=== PATIENT | female | born 1940 | race Caucasian/White ===

== ENCOUNTER → 2023-05-17 11:49 | Outpatient (CLI) | payer MEDICARE, OTHER, SELFPAY ==
--- NOTE | 2023-05-17 11:54 | DI.ECHO.S_ITS ---
[facility]---------+ [facility] +---------+ : : [address] : [address] : : : : [id number] : : : : Phone: [phone]---------+ Echocardiogram Report + + :Name: SANDRA HOBSON Study Date: 05/17/2023 Height: 60 in : :[facility] ReadingLocation: Weight: 143 lb : : Gender: Female BSA: 1.6 m2 : :: 1940 Age: 82 yrs BP: 128/67 mmHg: :Reason For Study: TAKOTSUBO SYNDROME : :Ordering Physician: TAWANNA, : :KRZYSZTOF Performed By: Elva Rock : :Referring: KRZYSZTOF HOLLAND : + + Interpretation Summary The left ventricle is normal in size and wall thickness. Left ventricular systolic function is low normal. The ejection fraction is estimated to be 50- 55%. There is apical hypokinesis. Apical wall motion abnormality is new since prior study. The right ventricle is normal in size and function. The right ventricular systolic pressure is estimated to be at least 42 mmHg based on an estimated right atrial pressure of 8 mm Hg. The left atrium is moderately dilated. The right atrium is moderately dilated. There is moderate mitral regurgitation. Compared to the prior echo study, there has been an increase in the severity of mitral regurgitation. There is mild aortic regurgitation. There is mild to moderate tricuspid regurgitation. Compared to the prior echo exam, there has been an increase in TR severity. The aortic root is normal size. Procedure: A two-dimensional transthoracic echocardiogram with color flow and Doppler was performed. The study quality was technically adequate. Comparison is made with the echocardiogram of 10/01/2014. The patient was in sinus rhythm with heart rates between 52-74 bpm during the exam. The patient had occasional PVCs during the exam. Left Ventricle: The left ventricle is normal in size and wall thickness. Left ventricular systolic function is low normal. The ejection fraction is estimated to be 50-55%. There is apical hypokinesis. Apical wall motion abnormality is new since prior study. Right Ventricle: The right ventricle is normal in size and function. Atria: The left atrium is moderately dilated. The right atrium is moderately dilated. There is no Doppler evidence for an interatrial shunt. Mitral Valve: There is mild mitral annular calcification. The mitral valve chordae are thickened and/or calcified. The mitral valve leaflets are mildly calcified. There is moderate mitral regurgitation. Compared to the prior echo study, there has been an increase in the severity of mitral regurgitation. There are multiple regurgitant jets present. Aortic Valve: The aortic valve is trileaflet. The aortic valve opens well. There is no aortic valve stenosis. There is mild aortic regurgitation. Tricuspid Valve: The tricuspid valve is not well visualized, but is grossly normal. There is mild to moderate tricuspid regurgitation. Compared to the prior echo exam, there has been an increase in TR severity. The right ventricular systolic pressure is estimated to be at least 42 mmHg based on an estimated right atrial pressure of 8 mm Hg. Pulmonic Valve: The pulmonic valve leaflets are thin and pliable; valve motion is normal. There is mild pulmonic regurgitation. Great Vessels: The aortic root is normal size. The dimensions of the ascending aorta are normal. The IVC is dilated (diameter is greater than 2.1 cm) yet it collapses greater than 50% with a sniff. This suggests a right atrial pressure of 8 mm Hg. Pericardium/ Pleura There is no pericardial effusion. There is no pleural effusion. MMode/2D Measurements & Calculations LVIDd: 5.0 cm LVOT diam: 1.7 cm LVIDs: 3.5 cm Ao root diam: 2.9 cm FS: 31.4 % asc Aorta Diam: 3.2 cm IVSd: 0.93 cm Ao Arch Diam (Prox Trans): 2.6 cm LVPWd: 0.95 cm LV campos. diameter/BSA (cm/m^2): 3.1 LV sys. diameter/BSA (cm/m^2): 2.1 LA A2 area: 22.7 cm2 RA long axis: 5.5 cm LA A4 area: 25.7 cm2 RA area: 22.1 cm2 LA length (vol): 6.5 cm RA vol: 75.5 ml LA vol: 76.4 ml RA : 46.6 ml/m2 LA vol index: 47.2 ml/m2 IVC diam: 2.1 cm RVD1 (basal): 3.8 cm RVD2 (mid): 2.5 cm TAPSE: 2.5 cm Doppler Measurements & Calculations Ao V2 max: 152.1 cm/sec LVOT Max Gael: 76.6 cm/sec Ao V2 mean: 100.1 cm/sec LV V1 max P.3 mmHg Ao max P.3 mmHg LV V1 VTI: 17.4 cm Ao mean P.5 mmHg TERRI(I,D): 1.2 cm2 Ao V2 VTI: 32.0 cm TERRI(V,D): 1.1 cm2 sev ratio: 0.54 TERRI indexed to BSA (cm^2/m^2): 0.76 AI P1/2t: 675.5 msec AI dec slope: 164.7 cm/sec2 MV E max gael: 82.7 cm/sec TR max gael: 286.3 cm/sec MV A max gael: 38.0 cm/sec TR max P.8 mmHg MV E/A: 2.2 PA V2 max: 99.6 cm/sec Med Peak E' Gael: 7.0 cm/sec PA V2 mean: 71.9 cm/sec E/E' med: 11.8 PA mean P.2 mmHg Lat Peak E' Gael: 7.3 cm/sec PA pr(Accel): 7.1 mmHg E/E' lat: 11.4 E/e' average: 11.6 MV dec time: 0.28 sec MR ERO: 0.23 cm2 MR PISA: 3.4 cm2 SV(LVOT): 39.2 ml MR flow rate: 130.6 cm3/sec MR PISA radius: 0.74 cm Reading Physician:05:23 PM
== END ==
LOC: ECHO 11:52
PROVIDERS: PCP Internal Medicine; Referring Provider Internal Medicine Cardiovascular Disease; Visit Provider Internal Medicine Cardiovascular Disease
DX: I08.3 Combined rheumatic disorders of mitral, aortic and tricuspid valves (principal); I51.81 Takotsubo syndrome; I51.3 Intracardiac thrombosis, not elsewhere classified
CPT/HCPCS: 93306